=== PATIENT | female | born 1950 | race Caucasian/White ===

== ENCOUNTER 2020-09-15 14:39 | Inpatient (IN) ==
[2020-09-15] MEDS ORDERED: Dexamethasone 4 MG/ML VIAL IVP ONE (14:49)
[2020-09-15 15:39] LABS: ABG Base Excess -5 mEq/L (-2 to 3); ABG HCO3 15 mEq/L (21-27); ABG Oxygen Saturation 99 % (95-98); ABG PCO2 17 mmHg (35-45); ABG PH 7.55 pH Units (7.32-7.45); ABG PO2 119 mmHg (85-104); ABG TCO2 16 mEq/L (20-26)
[2020-09-15 16:21] LABS: Eosinophils % 0.2 %; Immature Granulocytes % 0.4 % (0-4); Monocytes % 7.3 %; Segmented Neutrophils % 87.5 %
[2020-09-15 16:22] LABS: Hematocrit 36.8 % (35.3-44.9); Hemoglobin 11.8 g/dL (11.5-15.4); Immature Platelets 7.1 % (1.1-6.1); Lymphocytes # 0.2 K/mcL (0.6-4.6); Lymphocytes % 4.6 %; Mean Corpuscular HGB Conc 32.1 g/dL (31.6-35.5); Mean Corpuscular Hemoglobin 28.3 pg (28.0-33.3); Mean Corpuscular Volume 88.2 fL (83.0-100.0); Mean Platelet Volume 11.9 fL (9.4-12.4); Monocytes # 0.4 K/mcL (0.0-1.3); Neutrophils # 4.2 K/mcL (1.6-8.9); Platelet Count 105 K/mcL (140-400); Red Blood Count 4.17 M/mcL (3.82-4.97); Red Cell Distribution Width 15.2 % (11.5-14.5); White Blood Count 4.8 K/mcL (4.3-11.1)
[2020-09-15 16:25] LABS: Adenovirus Not Detected (Not Detect); Bordetella Pertussis Not Detected (Not Detect); Chlamydophila pneumoniae Not Detected (Not Detect); Coronavirus 229E Not Detected (Not Detect); Coronavirus HKU1 Not Detected (Not Detect); Coronavirus NL63 Not Detected (Not Detect); Coronavirus OC43 Not Detected (Not Detect); Human Metapneumovirus Not Detected (Not Detect); Human Rhinovirus/Enterovirus Not Detected (Not Detect); Influenza A Subtype 2009 H1 Not Detected (Not Detect); Influenza B Not Detected (Not Detect); Mycoplasma pneumoniae Not Detected (Not Detect); Parainfluenza Virus 1 Not Detected (Not Detect); Parainfluenza Virus 2 Not Detected (Not Detect); Parainfluenza Virus 3 Not Detected (Not Detect); Parainfluenza Virus 4 Not Detected (Not Detect); Respiratory Syncytial Virus Not Detected (Not Detect)
[2020-09-15 16:26] LABS: SARS-CoV-2 DETECTED (Not Detect)
[2020-09-15] MEDS ORDERED: 0.9 % Sodium Chloride 500 ML IVC ONE (16:33)
[2020-09-15 16:41] LABS: Alanine Aminotransferase 6 Units/L (7-52); Albumin 3.8 g/dL (3.5-5.7); Albumin/Globulin Ratio 1.2 (1.1-2.2); Alkaline Phosphatase 48 Units/L (34-104); Aspartate Amino Transferase 20 Units/L (13-39); BUN/Creatinine Ratio 16 (6-26); Bilirubin,Direct 0.1 mg/dL (0.0-0.2); Bilirubin,Indirect 0.3 mg/dL (0.0-1.0); Bilirubin,Total 0.4 mg/dL (0.3-1.0); Blood Urea Nitrogen 14 mg/dL (8-23); C-Reactive Protein 103 mg/L (Less than 10); Calcium 8.3 mg/dL (8.6-10.3); Carbon Dioxide 22 mEq/L (23-29); Chloride 101 mEq/L (98-107); Globulin 3.1 g/dL (2.4-3.5); Glucose 107 mg/dL (70-105); Lactate Dehydrogenase 213 Units/L (140-271); Magnesium 1.1 mg/dL (1.6-2.6); Osmolality,Calculated 277 (280-300); Phosphorous 2.5 mg/dL (2.7-4.5); Potassium 3.8 mEq/L (3.5-5.1); Sodium 133 mEq/L (136-145); Total Protein 6.9 g/dL (6.4-8.9); Troponin I < 0.03 ng/mL (< 0.04); eGFR For African Americans > 60 (> 60); eGFR For Non-African Americans > 60 (> 60)
[2020-09-15 16:47] LABS: INR 1.1; Prothrombin Time 12.3 Seconds (9.4-12.1)
[2020-09-15 16:55] LABS: Platelet Estimate Slight Decrease (Normal); Reactive Lymphocytes Present (Not Present)
[2020-09-15 17:00] LABS: Ferritin 267 ng/mL (10-120)
[2020-09-15] MEDS ORDERED: 0.9 % Sodium Chloride 1,000 ML IVC ONE (17:04)
[2020-09-15] MEDS ORDERED: Naloxone 0.4 MG/ML INJ IVP PRN (17:14)
[2020-09-15] MEDS ORDERED: Ondansetron 4 MG/2 ML VIAL IVP PRN (17:14)
[2020-09-15] MEDS ORDERED: Albuterol 2.5 MG/3 ML NEBULIZER IH SCH (20:00)
[2020-09-15] MEDS: Acetaminophen 325 MG TABLET PO PRN (21:03)
[2020-09-16 06:01] LABS: Basophils % 0.3 %; Mean Corpuscular Volume 89.2 fL (83.0-100.0); Platelet Count 107 K/mcL (140-400)
[2020-09-16 06:03] LABS: Hematocrit 37.1 % (35.3-44.9); Hemoglobin 11.6 g/dL (11.5-15.4); Immature Granulocytes % 0.5 % (0-4); Immature Platelets 6.4 % (1.1-6.1); Lymphocytes # 0.3 K/mcL (0.6-4.6); Lymphocytes % 7.2 %; Mean Corpuscular HGB Conc 31.3 g/dL (31.6-35.5); Mean Corpuscular Hemoglobin 27.9 pg (28.0-33.3); Mean Platelet Volume 10.8 fL (9.4-12.4); Monocytes # 0.1 K/mcL (0.0-1.3); Monocytes % 2.6 %; Neutrophils # 3.5 K/mcL (1.6-8.9); Red Blood Count 4.16 M/mcL (3.82-4.97); Red Cell Distribution Width 15.3 % (11.5-14.5); Segmented Neutrophils % 89.4 %; White Blood Count 3.9 K/mcL (4.3-11.1)
[2020-09-16 06:22] LABS: Fibrinogen 525 mg/dL (169-393)
[2020-09-16] MEDS: *HR* Enoxaparin 40 MG/0.4 ML SYRINGE SQ SCH (06:23)
[2020-09-16 06:29] LABS: D-Dimer 2459 ng/mLFEU (0-500)
[2020-09-16] MEDS: Dexamethasone 4 MG/ML VIAL IVP SCH (08:11)
[2020-09-16 08:12] LABS: Magnesium 1.8 mg/dL (1.6-2.6); Phosphorous 5.9 mg/dL (2.7-4.5)
[2020-09-16] MEDS: Furosemide 20 MG/2 ML VIAL IVP SCH ×2 (08:13→21:57)
[2020-09-16 08:28] LABS: ABG Base Excess -6 mEq/L (-2 to 3); ABG HCO3 17 mEq/L (21-27); ABG Oxygen Saturation 87 % (95-98); ABG PCO2 26 mmHg (35-45); ABG PH 7.43 pH Units (7.32-7.45); ABG PO2 50 mmHg (85-104); ABG TCO2 18 mEq/L (20-26)
[2020-09-16] MEDS: Azithromycin 250 MG TABLET PO SCH (15:50)
[2020-09-16] MEDS: Acetaminophen 325 MG TABLET PO PRN (17:21)
[2020-09-16] MEDS: Mirtazapine 15 MG TABLET PO SCH (21:58)
[2020-09-17] MEDS: *HR* Enoxaparin 40 MG/0.4 ML SYRINGE SQ SCH (04:37)
[2020-09-17 05:18] LABS: Fibrinogen 384 mg/dL (169-393)
[2020-09-17 05:29] LABS: D-Dimer 1692 ng/mLFEU (0-500)
[2020-09-17 05:39] LABS: BUN/Creatinine Ratio 20 (6-26); Blood Urea Nitrogen 18 mg/dL (8-23); Calcium 8.7 mg/dL (8.6-10.3); Carbon Dioxide 16 mEq/L (23-29); Chloride 107 mEq/L (98-107); Glucose 119 mg/dL (70-105); Lactate Dehydrogenase 262 Units/L (140-271); Magnesium 1.7 mg/dL (1.6-2.6); Osmolality,Calculated 287 (280-300); Sodium 137 mEq/L (136-145); eGFR For African Americans > 60 (> 60); eGFR For Non-African Americans > 60 (> 60)
[2020-09-17 05:50] LABS: Ferritin 302 ng/mL (10-120)
[2020-09-17] MEDS: Azithromycin 250 MG TABLET PO SCH (09:24)
[2020-09-17] MEDS: Patient Taking Own Medication 1 EACH PO SCH (09:25)
[2020-09-17] MEDS: Gabapentin 300 MG CAPSULE PO SCH (09:25)
[2020-09-17] MEDS: Dexamethasone 4 MG/ML VIAL IVP SCH (09:26)
[2020-09-17] MEDS: Furosemide 20 MG/2 ML VIAL IVP SCH ×2 (09:26→17:59)
[2020-09-17] MEDS: Mirtazapine 15 MG TABLET PO SCH (20:10)
[2020-09-18] MEDS: Furosemide 20 MG/2 ML VIAL IVP SCH ×2 (06:27→16:55)
[2020-09-18] MEDS: *HR* Enoxaparin 40 MG/0.4 ML SYRINGE SQ SCH (06:28)
[2020-09-18] MEDS: Azithromycin 250 MG TABLET PO SCH (08:16)
[2020-09-18] MEDS: Gabapentin 300 MG CAPSULE PO SCH (08:16)
[2020-09-18] MEDS: Patient Taking Own Medication 1 EACH PO SCH (08:17)
[2020-09-18] MEDS: Dexamethasone 4 MG/ML VIAL IVP SCH (08:17)
[2020-09-18] MEDS ORDERED: Isovue-370 500 ML BOTTLE IVP ONE (10:26)
[2020-09-18 11:07] LABS: BUN/Creatinine Ratio 24 (6-26); Blood Urea Nitrogen 19 mg/dL (8-23); Carbon Dioxide 14 mEq/L (23-29); Chloride 103 mEq/L (98-107); Glucose 109 mg/dL (70-105); Magnesium 1.6 mg/dL (1.6-2.6); Osmolality,Calculated 277 (280-300); Phosphorous 2.1 mg/dL (2.7-4.5); Potassium 3.2 mEq/L (3.5-5.1); Sodium 132 mEq/L (136-145); eGFR For African Americans > 60 (> 60); eGFR For Non-African Americans > 60 (> 60)
[2020-09-18] MEDS ORDERED: Dexamethasone 4 MG/ML VIAL IVP ONE (11:47)
[2020-09-18] MEDS: Cefepime HCl 1,000 MG in Water for inj. (sterile) 10 ML IVP SCH ×2 (12:55→19:41)
[2020-09-18] MEDS: Mirtazapine 15 MG TABLET PO SCH (19:42)
[2020-09-19] MEDS: Cefepime HCl 1,000 MG in Water for inj. (sterile) 10 ML IVP SCH ×3 (04:16→19:56)
[2020-09-19] MEDS: *HR* Enoxaparin 40 MG/0.4 ML SYRINGE SQ SCH (05:44)
[2020-09-19] MEDS: Furosemide 20 MG/2 ML VIAL IVP SCH ×2 (05:44→17:31)
[2020-09-19] MEDS: Dexamethasone Sodium Phos/PF 10 MG/ML VIAL IVP SCH (08:40)
[2020-09-19] MEDS: Patient Taking Own Medication 1 EACH PO SCH (08:40)
[2020-09-19] MEDS: Gabapentin 300 MG CAPSULE PO SCH (08:40)
[2020-09-19] MEDS: Mirtazapine 15 MG TABLET PO SCH (19:56)
[2020-09-19] MEDS: Acetaminophen 325 MG TABLET PO PRN (23:02)
[2020-09-20 03:05] LABS: BUN/Creatinine Ratio 40 (6-26); Blood Urea Nitrogen 38 mg/dL (8-23); Calcium 8.9 mg/dL (8.6-10.3); Carbon Dioxide 16 mEq/L (23-29); Chloride 104 mEq/L (98-107); Glucose 118 mg/dL (70-105); Lactate Dehydrogenase 291 Units/L (140-271); Osmolality,Calculated 288 (280-300); Phosphorous 3.6 mg/dL (2.7-4.5); Potassium 3.2 mEq/L (3.5-5.1); Sodium 134 mEq/L (136-145); eGFR For African Americans > 60 (> 60); eGFR For Non-African Americans 58 (> 60)
[2020-09-20 03:09] LABS: Fibrinogen 370 mg/dL (169-393)
[2020-09-20 03:11] LABS: D-Dimer 2321 ng/mLFEU (0-500)
[2020-09-20] MEDS: Cefepime HCl 1,000 MG in Water for inj. (sterile) 10 ML IVP SCH ×3 (05:03→20:59)
[2020-09-20] MEDS: *HR* Enoxaparin 40 MG/0.4 ML SYRINGE SQ SCH (05:04)
[2020-09-20] MEDS: Furosemide 20 MG/2 ML VIAL IVP SCH ×2 (05:05→17:53)
[2020-09-20] MEDS: Gabapentin 300 MG CAPSULE PO SCH (08:52)
[2020-09-20] MEDS: Dexamethasone Sodium Phos/PF 10 MG/ML VIAL IVP SCH (08:53)
[2020-09-20] MEDS: Patient Taking Own Medication 1 EACH PO SCH (09:00)
[2020-09-20] MEDS ORDERED: tiZANidine 4 MG TABLET PO PRN (16:18)
[2020-09-20] MEDS: Mirtazapine 15 MG TABLET PO SCH (20:59)
[2020-09-21 02:59] LABS: Basophils # 0.1 K/mcL (0.0-0.2); Basophils % 0.5 %; Hematocrit 38.4 % (35.3-44.9); Hemoglobin 12.6 g/dL (11.5-15.4); Immature Granulocytes % 2.4 % (0-4); Lymphocytes # 0.9 K/mcL (0.6-4.6); Lymphocytes % 7.2 %; Mean Corpuscular HGB Conc 32.8 g/dL (31.6-35.5); Mean Corpuscular Hemoglobin 28.3 pg (28.0-33.3); Mean Corpuscular Volume 86.3 fL (83.0-100.0); Monocytes # 0.5 K/mcL (0.0-1.3); Monocytes % 4.3 %; Neutrophils # 10.3 K/mcL (1.6-8.9); Red Blood Count 4.45 M/mcL (3.82-4.97); Red Cell Distribution Width 15.4 % (11.5-14.5); Segmented Neutrophils % 85.6 %
[2020-09-21 03:00] LABS: Platelet Count 96 K/mcL (140-400)
[2020-09-21 03:20] LABS: BUN/Creatinine Ratio 44 (6-26); Blood Urea Nitrogen 43 mg/dL (8-23); Calcium 8.7 mg/dL (8.6-10.3); Carbon Dioxide 17 mEq/L (23-29); Chloride 105 mEq/L (98-107); Glucose 119 mg/dL (70-105); Magnesium 2.1 mg/dL (1.6-2.6); Osmolality,Calculated 290 (280-300); Potassium 3.7 mEq/L (3.5-5.1); Sodium 134 mEq/L (136-145); eGFR For African Americans > 60 (> 60); eGFR For Non-African Americans 57 (> 60)
[2020-09-21] MEDS: Cefepime HCl 1,000 MG in Water for inj. (sterile) 10 ML IVP SCH ×2 (04:29→12:04)
[2020-09-21] MEDS: *HR* Enoxaparin 40 MG/0.4 ML SYRINGE SQ SCH (05:32)
[2020-09-21] MEDS: Furosemide 20 MG/2 ML VIAL IVP SCH (05:33)
[2020-09-21] MEDS: Gabapentin 300 MG CAPSULE PO SCH (09:32)
[2020-09-21] MEDS: Dexamethasone Sodium Phos/PF 10 MG/ML VIAL IVP SCH (09:34)
[2020-09-21] MEDS: Patient Taking Own Medication 1 EACH PO SCH (09:35)
[2020-09-21 11:07] VITALS: BP 102/71
== END 2020-09-21 12:50 | disposition short-term general hospital (02) | DRG 871 ==
LOC: EMEROOARM 14:39 → 2NENU 14:39 → SUATTDRO 09-16 15:45
PROVIDERS: ADMIT Internal Medicine; ATTEND Internal Medicine